=== PATIENT | female | born 1980 | race Caucasian/White ===

== ENCOUNTER 2019-02-07 10:10 | Emergency (ER) | payer OTHER ==
[2019-02-07 10:23] VITALS: BP 142/94; PULSE 72; RESP 16; TEMP 98.6
--- NOTE | 2019-02-07 10:52 | ED ---
General Adult HPI - General Chief complaint: Extremity Problem,Nontraumatic Stated complaint: Breast Swelling/redness Time Seen by Provider: 02/07/19 10:26 Source: patient Mode of arrival: ambulatory Limitations: no limitations - History of Present Illness Initial comments: Patient is a 38-year-old female presenting to the emergency Department with comp laints of pain and redness on her left breast x 3 days. Patient states she noticed some redness and discomfort 3 days ago, the next day she went to urgent care because the redness was spreading. They started her on Bactrim and steroids. The urgent care told her to go to the ER if there is no improvement with the medications. Patient states the redness was spreading and now she noticed a few small bumps on her breath so she decided to come to the ER. Patient describes the discomfort as burning, fullness. Patient denies fever or chills. Patient admits to history of chickenpox when she was younger. Patient states she has never had shingles. Patient denies currently breast-feeding or any previous history with her breath. Patient denies any other complaints at this time. - Related Data Previous Rx's Medication Instructions Recorded valACYclovir HCL [Valtrex] 1,000 mg PO Q8HR 7 Days #21 tab 02/07/19 Allergies Allergy/AdvReac Type Severity Reaction Status Date / Time No Known Allergies Allergy Verified 02/07/19 10:23 Review of Systems ROS Statement: Those systems with pertinent positive or pertinent negative responses have been documented in the HPI. ROS Other: All systems not noted in ROS Statement are negative. Past Medical History Past Medical History: No Reported History History of Any Multi-Drug Resistant Organisms: None Reported Past Surgical History: Section Past Psychological History: No Psychological Hx Reported Smoking Status: Former smoker Past Alcohol Use History: Abuse Past Drug Use History: None Reported General Exam - General Exam Comments Initial Comments: GENERAL: Well-appearing, well-nourished and in no acute distress. HEAD: Atraumatic, normocephalic. EYES: Pupils equal round and reactive to light, extraocular movements intact, sclera anicteric, conjunctiva are normal. ENT: TMs normal, nares patent, oropharynx clear without exudates. Moist mucous membranes. NECK: Normal range of motion, supple without lymphadenopathy or JVD. LUNGS: Breath sounds clear to auscultation bilaterally and equal. No wheezes rales or rhonchi. HEART: Regular rate and rhythm without murmurs, rubs or gallops. ABDOMEN: Soft, nontender, normoactive bowel sounds. No guarding, no rebound. No masses appreciated. : Deferred EXTREMITIES: Normal range of motion, no pitting or edema. No clubbing or cyanosis. NEUROLOGICAL: Cranial nerves II through XII grossly intact. Normal speech, normal gait. PSYCH: Normal mood, normal affect. Limitations: no limitations Expanded Type of lesion: Present: rash Distribution of rash: other (Left breast and spreading towards left armpit) Description of rash: Present: tenderness, erythematous, macular, papular, vesicular (There are a few macular, papular bumps on the left breast extending underneath the left armpit) Course Vital Signs 02/07/19 02/07/19 10:20 11:51 Temperature 98.6 F 98.6 F Pulse Rate 72 72 Respiratory 16 16 Rate Blood Pressure 142/94 142/94 O2 Sat by Pulse 99 99 Oximetry Medical Decision Making - Medical Decision Making Patient is a 38-year-old female complaining of redness and a rash on her left breast 3 days. Patient did go to urgent care and was started on Bactrim and steroids for possible cellulitis. Patient was told to come the ER for an ultrasound if the medications did not help. Patient states the rash was spr eading since she'll she came to the ER. On exam patient has erythema to the top of the left breast that spreads into the left axilla area. Patient also has small macular, papular lesions consistent with shingles virus along T3-T4 dermatome. The left breast ultrasound was obtained and was negative for abscesses, cystic lesions, and there is no evidence of inflammatory breast cancer. Patient will be started on Valtrex and will continue her steroids. Patient will follow up with PCP if symptoms continue. Patient is in agreement with this plan. Case is discussed with Dr. Bartlett who agrees with this plan of care. Disposition Clinical Impression: Shingles rash Disposition: HOME SELF-CARE Condition: Stable Instructions (If sedation given, give patient instructions): Shingles (ED) Additional Instructions: Please return to the Emergency Department if symptoms worsen or any other concerns. Prescriptions: valACYclovir HCL [Valtrex] 1,000 mg PO Q8HR 7 Days #21 tab Is patient prescribed a controlled substance at d/c from ED?: No Referrals: None,Stated [Primary Care Provider] - 1-2 days
--- NOTE | 2019-02-10 07:23 | USB ---
Reason for exam: clinical finding. US Breast LT Left complete breast ultrasound includes all four quadrants, the retroareolar region and axilla. Finding demonstrates no cystic or solid lesion seen. Left breast is red with a few spots on breast. No abscess. No abnormality at this time to suggest sonographic evidence on inflammatory breast cancer. ASSESSMENT: Incomplete: need additional imaging evaluation, BI-RAD 0 RECOMMENDATION: Follow-up diagnostic mammogram of both breasts. (Diagnostic mammogram to be performed nonemergent) Manage on a clinical basis with regard to possible cellulitis.
== END 2019-02-07 11:51 | disposition home or self-care (01) ==
LOC: EC 10:10
DX: B02.9 Zoster without complications (principal); Z87.891 Personal history of nicotine dependence; Z86.19 Personal history of other infectious and parasitic diseases
CPT/HCPCS: 99283